=== PATIENT | female | born 1990 | race Caucasian/White ===

== ENCOUNTER 2017-05-08 03:55 | Emergency (ER) | payer SELFPAY ==
[~2017-05-08] VITALS: Ht 165.1 cm; Wt 69.9 kg
[~2017-05-08 03:55] MED LIST: IBUP-232 PO; XANA0.5T PO; ZOFR4TAB3 SL
[2017-05-08 04:02] VITALS: BP 128/91; PULSE 92; RESP 20; TEMP 97.7; O2SAT 100
[2017-05-08] MEDS ORDERED: XANA1TAB2 PO (04:20)
[2017-05-08] MEDS ORDERED: ADDE20 PO (04:20)
[2017-05-08] MEDS ORDERED: SODIUM CHLOR 0.9% 1000 ML INJ 1,000 ML IV SCH (04:30)
[2017-05-08] MEDS ORDERED: SODIUM CHLORIDE 0.9% FLUSH 10 ML FLUSH IVF PRN (04:30)
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
[2017-05-08 04:45] VITALS: BP 115/83; PULSE 77; RESP 16; O2SAT 100
[2017-05-08 04:49] LABS: GLUCOSE,URINE NEG (NEG); KETONE, URINE NEG (NEG); NITRITE,URINE NEG (NEG)
[2017-05-08 04:58] LABS: AUTOMATED NEUTROPHIL # 2.3 TH/MM3 (1.8-7.7); BASOPHIL # 0.1 TH/MM3 (0-0.2); BASOPHIL % 1.9 % (0.0-2.0); EOSINOPHIL # 0.1 TH/MM3 (0-0.4); EOSINOPHIL % 2.1 % (0.0-4.0); HEMATOCRIT 44.1 % (35.0-46.0); HEMO FLAGS DIFF FINAL; LYMPH % 36.5 % (9.0-44.0); LYMPHOCYTE # 1.7 TH/MM3 (1.0-4.8); MEAN CORPUSCULAR HEMOGLOBIN 31.7 PG (27.0-34.0); MEAN CORPUSCULAR HGB CONC 33.7 % (32.0-36.0); MONO % 7.9 % (0.0-8.0); NEUT % 51.6 % (16.0-70.0); PLATELET COUNT 228 TH/MM3 (150-450); RED CELL DISTRIBUTION WIDTH 13.4 % (11.6-17.2); WHITE BLOOD COUNT 4.6 TH/MM3 (4.0-11.0)
[2017-05-08 04:59] LABS: BLOOD, URINE MOD (NEG)
[2017-05-08 05:03] LABS: CHLORIDE 107 MEQ/L (98-107); POTASSIUM 3.5 MEQ/L (3.5-5.1); SODIUM (NA) 140 MEQ/L (136-145)
[2017-05-08 05:06] LABS: ANION GAP 7 MEQ/L (5-15); BICARBONATE 25.6 MEQ/L (21.0-32.0)
[2017-05-08 05:07] LABS: BLOOD UREA NITROGEN 3 MG/DL (7-18)
[2017-05-08 05:09] LABS: ALT (GPT) 20 U/L (10-53)
[2017-05-08 05:10] LABS: AST (GOT) 17 U/L (15-37); GLOMERULAR FILTRATION RATE 77 ML/MIN (>89)
[2017-05-08 05:11] LABS: TOTAL BILIRUBIN ADULT 0.3 MG/DL (0.2-1.0)
[2017-05-08 05:12] LABS: ALKALINE PHOSPHATASE 52 U/L (45-117)
[2017-05-08 05:15] LABS: BETA HCG QUANT LESS THAN 1 MIU/ML (0-5); METHOD OF COLLECTION VOIDED; RBC, URINE 0-3 /hpf (0-3); URINE COLOR STRAW (YELLW/STRAW)
[2017-05-08 05:16] LABS: COMMENT (UR) CULT NOT INDICATED; CULTURE IF INDICATED CULT NOT INDICATED; SQUAMOUS EPITHELIAL CELL URINE 0-2 /hpf (0-5)
[2017-05-08 05:19] LABS: ALCOHOL 96 MG/DL (0-5)
[2017-05-08 05:43] VITALS: BP 120/78; PULSE 76; RESP 16; O2SAT 99
[2017-05-08 06:20] LABS: ACETAMINOPHEN LESS THAN 2.0 MCG/ML (10.0-30.0)
--- NOTE | 2017-05-08 16:25 | EKG ---
Date Performed: 05/08/2017 Time Performed: 04:38:31 PTAGE: 27 years EKG: Sinus rhythm WITH SINUS ARRHYTHMIA POSSIBLE LEFT ATRIAL ENLARGEMENT POSSIBLE RIGHT VENTRICULAR CONDUCTION DELAY B ORDERLINE ECG NO PREVIOUS TRACING DOCTOR: Damaso Armando Interpretating Date/Time 05/08/2017 16:23:29
== END 2017-05-08 05:55 | disposition home or self-care (01) ==
LOC: PHED 03:55
DX: F10.129 Alcohol abuse with intoxication, unspecified (principal); R31.9 Hematuria, unspecified; I49.8 Other specified cardiac arrhythmias; Y90.4 Blood alcohol level of 80-99 mg/100 ml; Z72.0 Tobacco use; Z79.899 Other long term (current) drug therapy
CPT/HCPCS: 80053; 80307; 81001; 84702; 85025; 93005; 96360; 99284; J7030

== ENCOUNTER 2017-10-04 01:58 | Emergency (ER) | payer SELFPAY ==
[~2017-10-04] VITALS: Ht 167.6 cm; Wt 71.0 kg
[~2017-10-04 01:58] MED LIST changes: +ADDE20 PO; -IBUP-232 PO; -XANA0.5T PO; +XANA1TAB2 PO; -ZOFR4TAB3 SL
[2017-10-04 02:10] VITALS: BP 128/84; PULSE 91; RESP 16; TEMP 97.8; O2SAT 97
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
[2017-10-04 03:12] VITALS: BP 111/77; PULSE 83; RESP 16; O2SAT 98
[2017-10-04] MEDS ORDERED: IBUPROFEN 600 MG TAB PO ONE (03:15)
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
[2017-10-04] MEDS ORDERED: MOBI15TA PO (03:34)
[2017-10-04] MEDS ORDERED: ROBA750T PO (03:34)
[2017-10-04] MEDS ORDERED: KETOROLAC TROMETHAMINE 60 MG/2 ML (IM) VIAL IM ONE (03:45)
== END 2017-10-04 04:08 | disposition home or self-care (01) ==
LOC: PHED 01:58
DX: S09.90XA Unspecified injury of head, initial encounter (principal); S16.1XXA Strain of muscle, fascia and tendon at neck level, initial encounter; Y09 Assault by unspecified means
CPT/HCPCS: 70450; 72125; 84703; 96372; 99285; J1885